=== PATIENT | female | born 1950 | race Caucasian/White ===

== ENCOUNTER → 2016-08-02 | Outpatient (CLI) | payer OTHER, MEDICARE ==
[~2016-08-02] MED LIST: ASPIRIN E.C. 8181 MG PO; FERROUS SU325 MG/TAB PO; HCTZ 25MG25 MG PO; NIACIN500 M3 PO; PRILOSEC PO; SYNTHROID0.088 MG/T PO; TYLENOL 325MG325 MG PO
== END ==
LOC: MC.RAD 07:40
DX: Z12.31 Encounter for screening mammogram for malignant neoplasm of breast (principal)

== ENCOUNTER → 2017-08-03 | Outpatient (CLI) | payer MEDICARE | LOC: MC.RAD 08:02 | DX: Z12.31 Encounter for screening mammogram for malignant neoplasm of breast (principal) ==

== ENCOUNTER → 2018-08-06 | Outpatient (CLI) | payer MEDICARE | LOC: MC.RAD 08:20 | DX: Z12.31 Encounter for screening mammogram for malignant neoplasm of breast (principal) ==

== ENCOUNTER → 2019-05-21 | Outpatient (CLI) | payer MEDICARE | LOC: COL.VAS 05-20 12:30 | DX: I82.402 Acute embolism and thrombosis of unspecified deep veins of left lower extremity (principal); I83.813 Varicose veins of bilateral lower extremities with pain ==

== ENCOUNTER → 2019-06-05 | Outpatient (CLI) | payer MEDICARE | LOC: COL.RAD 09:42 | DX: N93.9 Abnormal uterine and vaginal bleeding, unspecified (principal) ==

== ENCOUNTER → 2019-08-16 | Outpatient (CLI) | payer MEDICARE | LOC: MC.RAD 09:11 | DX: Z12.31 Encounter for screening mammogram for malignant neoplasm of breast (principal) ==

== ENCOUNTER → 2020-09-02 | Outpatient (CLI) | payer MEDICARE | LOC: MC.RAD 14:24 | DX: Z12.31 Encounter for screening mammogram for malignant neoplasm of breast (principal) ==

== ENCOUNTER → 2021-06-15 | Outpatient (CLI) | payer MEDICARE | LOC: COL.PUL 07:21 | DX: R06.00 Dyspnea, unspecified (principal) ==

== ENCOUNTER → 2021-09-03 | Outpatient (CLI) | payer OTHER | LOC: MC.RAD 08:52 | DX: Z12.31 Encounter for screening mammogram for malignant neoplasm of breast (principal) ==

== ENCOUNTER 2023-02-06 12:47 | Outpatient (RCR) | payer MEDICARE | END 2023-03-02 | disposition home or self-care (01) | LOC: MKS.ESL.PT | DX: H81.12 Benign paroxysmal vertigo, left ear (principal) ==

== ENCOUNTER 2023-08-03 09:57 | Inpatient (IN) | payer MEDICARE, MEDICAID ==
[~2023-08-03] VITALS: Ht 167.6 cm; Wt 109.4 kg
[2023-08-03] VITALS (9 sets, daily range): BP systolic 96–134; BP diastolic 65–90; PULSE 80–101; TEMP 97.9–98.6
[2023-08-03 10:41] LABS: BASO # 0.1 K/mm3 (0.0-0.2); BASO % 1.1 % (0.0-2.0); EOS # 0.2 K/mm3 (0.0-0.7); EOS % 2.4 % (0.0-4.0); GRAN # 3.8 K/mm3 (1.4-6.5); GRAN % 54.5 % (42.2-75.2); HEMATOCRIT 43.7 % (37.0-47.0); HEMOGLOBIN 13.6 g/dl (12.5-16.0); LYMPH # 2.4 K/mm3 (1.2-3.4); LYMPH % 34.6 % (20.0-51.0); MEAN CELL VOLUME 93 fl (80.0-100.0); MEAN CORPUSCULAR HEMOGLOBIN 29 pg (27-31); MEAN CORPUSCULAR HGB CONC 31 g/dl (33.0-37.0); MEAN PLATELET VOLUME 9.4 fl (7.4-10.4); MONO # 0.5 K/mm3 (0.1-0.6); MONO % 6.5 % (1.7-9.3); PLATELET COUNT 307 K/mm3 (130-400); REDCELL DISTRIBUTION WIDTH-CV 13.1 % (11.5-14.5)
[2023-08-03 10:53] LABS: ALANINE AMINOTRANSFERASE 8 U/L (0-55); ALBUMIN 3.9 gm/dL (3.4-4.8); ALKALINE PHOSPHATASE 71 U/L (40-150); ANION GAP 14 mmol/L (7-16); AST,SGOT 13 U/L (5-34); BILIRUBIN,TOTAL 0.6 mg/dL (0.2-1.2); BLOOD UREA NITROGEN 33 mg/dL (10-20); CALCIUM 9.2 mg/dL (8.4-10.2); CARBON DIOXIDE 22 mmol/L (23-31); CHLORIDE 106 mmol/L (98-107); CREATININE, serum 1.12 mg/dL (0.57-1.11); GLUCOSE 105 mg/dL (70-99); SODIUM 142 mmol/L (136-145); TOTAL PROTEIN 7.3 gm/dL (6.2-8.1)
[2023-08-03 10:59] LABS: TROPONIN-I < 0.010 ng/mL (0.00-0.033)
[2023-08-03] MEDS ORDERED: B-121000 MCG PO (11:22)
[2023-08-03] MEDS ORDERED: FERRO-TIME325 MG PO (11:23)
[2023-08-03] MEDS ORDERED: VENTOLIN0.09 MG IH (11:24)
[2023-08-03] MEDS ORDERED: ANTIVERT 25MG25 MG PO (11:25)
[2023-08-03] MEDS ORDERED: PROTONIX 40MG T40 MG PO (11:32)
[2023-08-03] MEDS ORDERED: CELEXA40 MG PO (11:33)
[2023-08-03] MEDS ORDERED: COZAAR 50MG50 MG/TAB PO (11:33)
[2023-08-03] MEDS ORDERED: GLUCOPHAGE1000 MG PO (11:33)
[2023-08-03] MEDS ORDERED: LIPITOR 10MG10 MG PO (11:34)
[2023-08-03] MEDS ORDERED: SYNTHROID0.137 MG (11:35)
[2023-08-03 12:45] LABS: MAGNESIUM 1.2 mg/dL (1.6-2.6)
[2023-08-03 13:06] LABS: TSH w REFLEX 1.204 uIU/mL (0.350-4.940)
[2023-08-03 14:37] LABS: INR 1.2 (0.8-3.0); PROTHROMBIN TIME 13.3 SECONDS (9.7-12.8)
[2023-08-03 15:08] LABS: PARTIAL THROMBOPLASTIN TIME 160.4 SECONDS (26.0-37.0)
[2023-08-03] MEDS ORDERED: MASON NATURAL2000 IU PO (15:22)
--- NOTE | 2023-08-03 15:29 | NUR ---
Patient arrived to room 315 from the ED with dx of Afib with RVR. Critical HepXa and PTT values called to Dr. Donnelly. Informed Dr. Donnelly labs were not drawn prior to the initiation of Heparin. The lab yamini blood after patient was transferred to room 315. No new orders rec'd. Intake completed. Assessment completed. Med Rec Tech completed Med Rec. Echo completed. Heparin and Cardizem infusing as ordered. IV sites to RH and LH without s/s complications. Denies pain or needs.
--- NOTE | 2023-08-03 18:47 | NUR ---
Critical HepXa called to this nurse by lab. Heparin placed on hold per protocol. Will re-draw HepXa at 2044.
--- NOTE | 2023-08-03 19:25 | NUR ---
Bedside report given to ANAMIKA Echevarria.
--- NOTE | 2023-08-03 21:30 | NUR ---
HepXa 0.43. Heparin has been stopped due critical high. Restarted at this time-decreased 300units to 1700units/hr per protocol. Next HepXa due at 0330. Order placed.
[2023-08-04] VITALS (12 sets, daily range): BP systolic 103–134; BP diastolic 63–86; PULSE 64–96; TEMP 98–98.6
[2023-08-04 03:45] LABS: BASO # 0.1 K/mm3 (0.0-0.2); BASO % 0.7 % (0.0-2.0); EOS # 0.2 K/mm3 (0.0-0.7); EOS % 2.5 % (0.0-4.0); GRAN # 3.8 K/mm3 (1.4-6.5); GRAN % 55.4 % (42.2-75.2); HEMATOCRIT 37.2 % (37.0-47.0); HEMOGLOBIN 11.9 g/dl (12.5-16.0); LYMPH # 2.3 K/mm3 (1.2-3.4); LYMPH % 33.2 % (20.0-51.0); MEAN CELL VOLUME 91 fl (80.0-100.0); MEAN CORPUSCULAR HEMOGLOBIN 29 pg (27-31); MEAN CORPUSCULAR HGB CONC 32 g/dl (33.0-37.0); MONO # 0.5 K/mm3 (0.1-0.6); MONO % 7.3 % (1.7-9.3); PLATELET COUNT 239 K/mm3 (130-400); RED BLOOD COUNT 4.08 M/mm3 (4.10-5.30); REDCELL DISTRIBUTION WIDTH-CV 13.3 % (11.5-14.5)
--- NOTE | 2023-08-04 03:46 | NUR ---
Spoke with MARY Selby about cardizem order. Currently is a titration order-phone order given to DC titration order and re-order for set dose of 5mg.
[2023-08-04 03:54] LABS: INR 1.1 (0.8-3.0); PROTHROMBIN TIME 12.1 SECONDS (9.7-12.8)
[2023-08-04 04:01] LABS: ALBUMIN 3.2 gm/dL (3.4-4.8); CALCIUM 8.9 mg/dL (8.4-10.2); CREATININE, serum 1.1 mg/dL (0.57-1.11); MAGNESIUM 1.6 mg/dL (1.6-2.6); PHOSPHOROUS 3.7 mg/dL (2.3-4.7)
--- NOTE | 2023-08-04 04:15 | NUR ---
HepXa 0.76. Infusion decreased 150units/hr per protocol. New rate 1550 units/hr. Next HepXa due 1015
--- NOTE | 2023-08-04 05:42 | NUR ---
Patient has had an uneventful night. Denied pain/nausea/shortness of breath. VS stable. High Dose Heparin protocol followed-currently at 1550 units/hr. Next HepXa is due at 1015. Cardizem continues to infuse at 5mg/hr/NS@75mls/hr infusing without difficulty. Has been NPO since midnight. TELE reporting a flutter. Denies current questions/concerns. Call light in reach. Will monitor.
--- NOTE | 2023-08-04 08:57 | NUR ---
Patient is resting in bed, alert and oriented x 4, denies any chest pain. Family at the bedside. Aware of procedure today. NPO from midnigth. Getting hep gtt 1550 u/hr, diltiazem 5ml/hr, and NS 75ML/HR. Assessment completed, no further needs at this time. Call light within reach.
--- NOTE | 2023-08-04 11:30 | NUR ---
D: Initial visit: Hose Cementer stopped by room on rounds. Pt was sitting on her couch with son by her side. A: Pt says she has no needs right now. [place] the area and has been living here for a long time. Pt appreciated the visit. P: Hose Cementer informed pt that if she needed anything to let her nurse know. Hose Cementer will follow up as needed.
--- NOTE | 2023-08-04 13:30 | NUR ---
Patient is taken for ERIKA/CV by bed.
--- NOTE | 2023-08-04 15:10 | NUR ---
Patient is back from procedure, alert and oriented x 4, VSS. Ordering food. EKG to be done. Continue monitoring.
[2023-08-04] MEDS ORDERED: ELIQUIS 5MG PO (15:13)
[2023-08-04] MEDS ORDERED: CORDARONE200 MG/TAB PO (15:14)
--- NOTE | 2023-08-04 17:52 | NUR ---
Patient is provided with discharge information, all questions answered, IV access and telemetry were discontinued.
== END 2023-08-04 17:54 | disposition home or self-care (01) | DRG 309 ==
LOC: COL.ER 09:57 → MEDICAL 11:26
PROVIDERS: Nurse Practitioner; Personal Emergency Response Attendant; ADMIT Internal Medicine
DX: I48.91 Unspecified atrial fibrillation (principal); Z68.41 Body mass index [BMI] 40.0-44.9, adult; K21.9 Gastro-esophageal reflux disease without esophagitis; E66.01 Morbid (severe) obesity due to excess calories; F32.A Depression, unspecified; E03.9 Hypothyroidism, unspecified; I12.9 Hypertensive chronic kidney disease with stage 1 through stage 4 chronic kidney disease, or unspecified chronic kidney disease; Z66 Do not resuscitate; G47.00 Insomnia, unspecified; N18.9 Chronic kidney disease, unspecified; G47.30 Sleep apnea, unspecified; E78.5 Hyperlipidemia, unspecified; I48.92 Unspecified atrial flutter; E11.22 Type 2 diabetes mellitus with diabetic chronic kidney disease; E83.42 Hypomagnesemia; Z88.6 Allergy status to analgesic agent; Z87.891 Personal history of nicotine dependence; Z98.51 Tubal ligation status; Z86.718 Personal history of other venous thrombosis and embolism; Z79.899 Other long term (current) drug therapy; Z79.84 Long term (current) use of oral hypoglycemic drugs; Z79.890 Hormone replacement therapy; Z23 Encounter for immunization
CPT/HCPCS: J1644; J2704; J3475; J7030

== ENCOUNTER → 2023-11-28 | Outpatient (CLI) | payer MEDICARE, MEDICAID ==
[~2023-11-28] MED LIST changes: +ANTIVERT 25MG25 MG PO; +B-121000 MCG PO; +CELEXA40 MG PO; +CORDARONE200 MG/TAB PO; +COZAAR 50MG50 MG/TAB PO; +ELIQUIS 5MG PO; +FERRO-TIME325 MG PO; +GLUCOPHAGE1000 MG PO; +LIPITOR 10MG10 MG PO; +MASON NATURAL2000 IU PO; +PROTONIX 40MG T40 MG PO; +SYNTHROID0.137 MG; +VENTOLIN0.09 MG IH
== END ==
LOC: MC.RAD 08:00
DX: Z12.31 Encounter for screening mammogram for malignant neoplasm of breast (principal)